=== PATIENT | male | born 1980 | race Caucasian/White ===

== ENCOUNTER 2021-03-11 08:53 | Outpatient (CLI) | payer OTHER | END 2021-03-11 08:54 | disposition home or self-care (01) | LOC: BICMRI 08:53 | PROVIDERS: ATTEND Family Medicine | DX: S46.911D Strain of unspecified muscle, fascia and tendon at shoulder and upper arm level, right arm, subsequent encounter (principal); M67.813 Other specified disorders of tendon, right shoulder | CPT/HCPCS: 70210 ==